=== PATIENT | female | born 1985 | race American Indian/Alaskan Native ===

== ENCOUNTER 2017-03-11 09:55 | Emergency (ER) | payer MEDICAID ==
[2017-03-11 10:40] VITALS: BP 110/76
[2017-03-11] MEDS ORDERED: FLEXERIL PO ONE (11:47)
[2017-03-11] MEDS ORDERED: MOTRIN PO ONE (11:47)
[2017-03-11] MEDS ORDERED: NORCO 7.5/325 PO ONE (11:47)
--- NOTE | 2017-03-11 12:04 | XRay Report ---
LEFT WRIST, 4 views: HISTORY: Pain and swelling. Routine views demonstrate the carpal bones to be well mineralized with well preserved bony mineralization and interosseous joint spaces. The carpal and adjacent articular bones have normal contours. The surrounding soft tissues are unremarkable. IMPRESSION: Normal study.
--- NOTE | 2017-03-11 14:32 | Emergency Department Report ---
Upper Extremity - HPI Chief Complaint: Extremity Problem,Nontraumatic Stated Complaint: LEFT WRIST PAIN Upper Extremity: Left Wrist Occurred When: Today Mechanism: Unsure Severity: mild Symptoms: Yes Pain with Movement, Yes Limited Range of Movement, Yes Numbness, Yes Swelling, No Deformity, No Weakness, No Bruising/Ecchymosis, No Laceration or Abrasion Other History: 31 year old female presents to ED with left wrist swelling, pain x1 day. patient denies injury or trauma. patient is stable, neurologically intact and in no acute distress. ED Review of Systems ROS: Stated complaint: LEFT WRIST PAIN Other details as noted in HPI Constitutional: denies: chills, fever Eyes: denies: eye pain, eye discharge, vision change ENT: denies: ear pain, throat pain Respiratory: denies: cough, shortness of breath, wheezing Cardiovascular: denies: chest pain, palpitations Endocrine: no symptoms reported Gastrointestinal: denies: abdominal pain, nausea, diarrhea Genitourinary: denies: urgency, dysuria, discharge Musculoskeletal: joint swelling, arthralgia. denies: back pain Skin: denies: rash, lesions Neurological: numbness. denies: headache, weakness, paresthesias, confusion, abnormal gait, vertigo Psychiatric: denies: anxiety, depression Hematological/Lymphatic: denies: easy bleeding, easy bruising ED Past Medical Hx - Past Medical History Previous Medical History?: No Additional medical history: UTI - Surgical History Past Surgical History?: No - Social History Smoking Status: Never Smoker Substance Use Type: None - Medications Home Medications: Home Medications Medication Instructions Recorded Confirmed Last Taken Type Meloxicam 7.5 mg PO QAM #5 tablet 03/11/17 Unknown Rx methylPREDNISolone [Medrol] 4 mg PO QAM #1 tab.ds.pk 03/11/17 Unknown Rx Upper Extremity Exam - Exam General: Vital signs noted. No distress. Alert and acting appropriately. Elbow: Yes Normal Range of Motion in Elbow, No Elbow Tenderness, No Elbow Deformity Forearm: No Forearm Tenderness, No Forearm Deformity, No Pain with Pronation, No Pain with Supination Wrist: Yes Wrist Tenderness, No Normal ROM in Wrist, No Wrist Deformity Hand: Yes Normal ROM in Digit(s), No Hand Tenderness, No Hand Deformity, No Digit Tenderness (slightly cold to touch digits on left hand) CMS Exam: Yes Normal Distal Pulses, Yes Normal Capillary Refill, Yes Normal Distal Sensation (positive tinel sign, unable to perform phalen due to pain), No Broken Skin ED Course Vital Signs 03/11/17 10:28 Temperature 98.4 F Pulse Rate 83 Respiratory 18 Rate Blood Pressure 110/76 O2 Sat by Pulse 99 Oximetry ED Medical Decision Making - Radiology Data Radiology results: report reviewed XR left wrist normal study left upper ext doppler negative for DVT - Medical Decision Making 31 year old female presents to ED with left wrist pain, swelling and x1 day. patient has no acute findings on xray or ultrasound. patient is stable, neurologically intact and in no acute distress. patient had left upp ext DVT ultrasound due to pain, swelling, cold to the touch fingers and patient is on control. Critical care attestation.: If time is entered above; I have spent that time in minutes in the direct care of this critically ill patient, excluding procedure time. ED Disposition Clinical Impression: Carpal tunnel syndrome of left wrist Disposition: DC-01 TO HOME OR SELFCARE Is pt being admited?: No Does the pt Need Aspirin: No Condition: Stable Instructions: Carpal Tunnel Syndrome (ED) Prescriptions: Meloxicam 7.5 mg PO QAM #5 tablet methylPREDNISolone [Medrol] 4 mg PO QAM #1 tab.ds.pk Referrals: DEAN HURLEY MD [Staff Physician] - 2-3 Days Forms: Work/School Release Form(ED)
--- NOTE | 2017-03-14 07:33 | Vascular Lab Report ---
LEFT UPPER EXTREMITY VENOUS DUPLEX: REASON FOR EXAM: Pain and swelling of the left upper extremity COMMENTS ON THE LEFT: All arm veins visualized are freely compressible without evidence of internal echogenicity. The subclavian and internal jugular veins are free of thrombus. Flow is spontaneous and phasic throughout. COMMENTS ON THE RIGHT: The subclavian and internal jugular veins are free of thrombus. IMPRESSION: No evidence of acute or chronic deep venous thrombosis in the left upper extremity.
== END 2017-03-11 14:35 | disposition home or self-care (01) ==
LOC: ED 09:55
DX: G56.02 Carpal tunnel syndrome, left upper limb (principal)

== ENCOUNTER 2017-04-19 20:17 | Emergency (ER) | payer MEDICAID ==
[2017-04-19 21:32] LABS: Bilirubin,Urine NEG (Negative); Blood,Urine MOD (Negative); Ketones,Urine NEG (Negative); Leukocyte Esterase,Urine TR (Negative); Mucus,Urine 3+ /HPF; Nitrite,Urine NEG (Negative); Protein,Urine <15 mg/dL mg/dL (Negative); Urobilinogen,Urine < 2.0 mg/dL (<2.0)
[2017-04-20] MEDS ORDERED: MORPHINE IV ONE (01:03)
[2017-04-20 01:11] LABS: Basophils % (Auto) 0.2 % (0.0-1.8); Eosinophils % (Auto) 0.3 % (0.0-4.3); Hematocrit 38.1 % (30.3-42.9); Hemoglobin 13.1 gm/dl (10.1-14.3); Mean Corpuscular HGB Conc 34 % (30-34); Mean Corpuscular Hemoglobin 30 pg (28-32); Mean Corpuscular Volume 87 fl (79-97); Platelet Count 258 K/mm3 (140-440); Red Blood Count 4.36 M/mm3 (3.65-5.03); Red Cell Distribution Width 12.9 % (13.2-15.2); White Blood Count 8.4 K/mm3 (4.5-11.0)
[2017-04-20 01:34] LABS: Alanine Aminotransferase 8 units/L (7-56); Albumin 4.4 g/dL (3.9-5); Albumin/Globulin Ratio 1.6 %; Alkaline Phosphatase 62 units/L (35-129); Amylase 110 units/L (27-131); Anion Gap 17 mmol/L; BUN/Creatinine Ratio 20; Blood Urea Nitrogen 14 mg/dL (7-17); Calcium 9.7 mg/dL (8.4-10.2); Carbon Dioxide 24 mmol/L (22-30); Chloride 105.3 mmol/L (98-107); Creatine Kinase 125 units/L (30-135); Glucose 95 mg/dL (65-100); Lipase 24 units/L (13-60); Potassium 4.2 mmol/L (3.6-5.0); Sodium 142 mmol/L (137-145); Total Protein 7.1 g/dL (6.3-8.2)
[2017-04-20 01:51] LABS: Bilirubin,Direct < 0.2 mg/dL (0-0.2); Bilirubin,Indirect 0.2 mg/dL
--- NOTE | 2017-04-20 04:28 | Emergency Department Report ---
ED Abdominal Pain HPI - General Chief Complaint: Abdominal Pain Stated Complaint: ABD PAIN Time Seen by Provider: 04/20/17 00:54 Source: patient Mode of arrival: Ambulatory Limitations: No Limitations - History of Present Illness Initial Comments: 31-year-old female complaining of nausea with some abdominal cramping since Tuesday. Complaining of upper abdominal epigastric pain. Some associated nausea. States she had 2 episodes of vomiting yesterday. Denies vaginal discharge denies fevers or chills. Patient awake alert and oriented 3 does not appear to be in severe distress. Denies any recent travel denies any new food consumption. Denies sexual activity for 4+ months. Last menstrual period 02/27/17. Patient concerned she may be . MD Complaint: abdominal pain Onset/Timin -: days(s) Location: epigastric Radiation: epigastric Migration to: epigastric Severity: mild Quality: cramping, sharp Consistency: intermittent Improves With: nothing Worsens With: nothing Associated Symptoms: nausea - Related Data Previous Rx's Medication Instructions Recorded Last Taken Type Meloxicam 7.5 mg PO QAM #5 tablet 03/11/17 Unknown Rx methylPREDNISolone [Medrol] 4 mg PO QAM #1 tab.ds.pk 03/11/17 Unknown Rx Famotidine [Pepcid] 20 mg PO BID PRN #30 tablet 04/20/17 Unknown Rx Naproxen 500 mg PO BID PRN #20 tablet 04/20/17 Unknown Rx Ondansetron [Zofran Odt] 4 mg PO Q8H PRN #20 tab.rapdis 04/20/17 Unknown Rx Allergies Allergy/AdvReac Type Severity Reaction Status Date / Time No Known Allergies Allergy Verified 04/19/17 20:19 ED Review of Systems ROS: Stated complaint: ABD PAIN Other details as noted in HPI Constitutional: denies: chills, fever Eyes: denies: eye pain, eye discharge, vision change ENT: denies: ear pain, throat pain Respiratory: denies: cough, shortness of breath, wheezing Cardiovascular: denies: chest pain, palpitations Endocrine: no symptoms reported Gastrointestinal: abdominal pain, nausea. denies: diarrhea Genitourinary: denies: urgency, dysuria, discharge Musculoskeletal: denies: back pain, joint swelling, arthralgia Skin: denies: rash, lesions Neurological: denies: headache, weakness, paresthesias Psychiatric: denies: anxiety, depression Hematological/Lymphatic: denies: easy bleeding, easy bruising ED Past Medical Hx - Past Medical History Previous Medical History?: No Additional medical history: UTI - Surgical History Past Surgical History?: No - Social History Smoking Status: Never Smoker Substance Use Type: None - Medications Home Medications: Home Medications Medication Instructions Recorded Confirmed Last Taken Type Meloxicam 7.5 mg PO QAM #5 tablet 03/11/17 Unknown Rx methylPREDNISolone [Medrol] 4 mg PO QAM #1 tab.ds.pk 03/11/17 Unknown Rx Famotidine [Pepcid] 20 mg PO BID PRN #30 tablet 04/20/17 Unknown Rx Naproxen 500 mg PO BID PRN #20 tablet 04/20/17 Unknown Rx Ondansetron [Zofran Odt] 4 mg PO Q8H PRN #20 tab.rapdis 04/20/17 Unknown Rx ED Physical Exam - General Limitations: No Limitations General appearance: alert, in no apparent distress - Head Head exam: Present: atraumatic, normocephalic - Eye Eye exam: Present: normal appearance, PERRL, EOMI - ENT ENT exam: Present: mucous membranes moist - Neck Neck exam: Present: normal inspection - Respiratory Respiratory exam: Present: normal lung sounds bilaterally. Absent: respiratory distress - Cardiovascular Cardiovascular Exam: Present: regular rate, normal rhythm. Absent: systolic murmur, diastolic murmur, rubs, gallop - GI/Abdominal GI/Abdominal exam: Present: soft (some epigastric pain and right upper quadrant pain on palpation. Positive Sellers's sign. Negative tenderness at McBurney's point negative suprapubic pain on deep palpation.), normal bowel sounds - External exam: Present: normal external exam Speculum exam: Present: normal speculum exam Bi-manual exam: Present: normal bi-manual exam (no cervical motion tenderness no adnexal tenderness on exam. Some white discharge) - Extremities Exam Extremities exam: Present: normal inspection - Back Exam Back exam: Present: normal inspection - Neurological Exam Neurological exam: Present: alert, oriented X3, CN II-XII intact, normal gait - Psychiatric Psychiatric exam: Present: normal affect, normal mood - Skin Skin exam: Present: warm, dry, intact, normal color. Absent: rash ED Course Vital Signs 04/19/17 20:19 Temperature 98.6 F Pulse Rate 81 Respiratory 18 Rate Blood Pressure 113/84 O2 Sat by Pulse 99 Oximetry ED Medical Decision Making - Lab Data Result diagrams: 04/20/17 01:00 04/20/17 01:00 - Medical Decision Making A/P: abdominal pain, nausea and vomiting possible cervicitis. 1-nausea and vomiting have subsided. Patient's pain is subsided. 2-CT scan unremarkable some uterine fibroids. Right upper quadrant ultrasound unremarkable. Labs unremarkable. UA unremarkable patient is not . 3-patient has no clinical signs of PID no adnexal tenderness no cervical motion tenderness. As patient has some discharge Will cover patient empirically for cervicitis with azithromycin and ceftriaxone. Follow-up with [facility] and primary care 4- patient refusing pelvic exam at this time. Will treat patient empirically for cervicitis and will also cover for PID with doxycycline. will give patient Zofran when necessary. Critical care attestation.: If time is entered above; I have spent that time in minutes in the direct care of this critically ill patient, excluding procedure time. ED Disposition Clinical Impression: Abdominal pain Qualifiers: Abdominal location: epigastric Qualified Code(s): R10.13 - Epigastric pain Disposition: TO HOME OR SELFCARE Is pt being admited?: No Does the pt Need Aspirin: No Condition: Stable Instructions: Abdominal Pain (ED) Prescriptions: Famotidine [Pepcid] 20 mg PO BID PRN #30 tablet PRN Reason: Indigestion Naproxen 500 mg PO BID PRN #20 tablet PRN Reason: Pain Ondansetron [Zofran Odt] 4 mg PO Q8H PRN #20 tab.rapdis PRN Reason: Nausea Referrals: [facility] [Outside] - 3-5 Days [facility] [Provider Group] - 3-[address] [facility] [Outside] - 3-5 Days Forms: Work/School Release Form(ED) Time of Disposition: 06:39
--- NOTE | 2017-04-20 04:57 | Cat Scan Report ---
FINAL REPORT EXAM: CT ABDOMEN PELVIS W CON HISTORY: worsening epigastric pain TECHNIQUE: CT images are acquired through the Abdomen and Pelvis in portal and delayed venous phases following ingestion of positive enteric contrast and intravenous administration of contrast. Transaxial, coronal and sagittal reformations are provided. PRIORS: None FINDINGS: Partially visualized intrathoracic contents are unremarkable. The liver, gallbladder, pancreas, spleen, and adrenal glands are unremarkable. Kidneys are normal in size, axis and position. There is a 2 millimeter nonobstructive left collecting system stone. A 15 millimeter interpolar left renal cyst is present. No hydroureteronephrosis or right-sided nephrolithiasis. No stones in the urinary bladder. Positive enteric contrast is seen as far distally as the ascending colon. Small and large bowel are normal in caliber. Appendix is normal in caliber and predominantly air-filled without surrounding inflammatory findings. No free air, free fluid, or lymphadenopathy identified. Aorta is normal in course and caliber. Anteverted uterus possibly containing several fundal transmural fibroids. Multiple pelvic phleboliths. Trace free fluid in the pelvis is likely physiologic. Superficial soft tissues are unremarkable. No acute or aggressive appearing skeletal findings. IMPRESSION: No acute findings in the abdomen or pelvis.
[2017-04-20] MEDS ORDERED: ZOFRAN IV ONE ×2 (05:16→07:58)
--- NOTE | 2017-04-20 06:06 | Ultrasound Report ---
FINAL REPORT EXAM: US ABDOMEN LIMITED HISTORY: RUQ pain ? gallstones TECHNIQUE: Routine imaging was obtained of the right upper outer quadrant. FINDINGS: The gallbladder is normal in size and wall thickness. Stones are not identified. The common bile duct measures 3.2 millimeters in diameter which is normal. The liver is normal size and echotexture. The right kidney shows no evidence of hydronephrosis. Free fluid is not seen. IMPRESSION: Normal exam. No evidence of gallstones or secondary signs of acute cholecystitis.
[2017-04-20] MEDS ORDERED: XYLOCAINE 1% MPF 5 mL INFILTRATI ONE (06:34)
[2017-04-20] MEDS ORDERED: ROCEPHIN IM ONE (06:34)
[2017-04-20] MEDS ORDERED: ZITHROMAX PO ONE (06:35)
[2017-04-20] MEDS ORDERED: TORADOL IV ONE (07:58)
[2017-04-20 08:32] VITALS: BP 115/80
== END 2017-04-20 08:30 | disposition home or self-care (01) ==
LOC: ED 20:17
DX: R10.13 Epigastric pain (principal); R11.0 Nausea
CPT/HCPCS: 36415; 74177; 76705; 80048; 80074; 81001; 81025; 82140; 82150; 82550; 83690; 85025; 87210; 87591; 96372; 96374; 96375; 96376; 99284; J0696; J1885; J2270; J2405; Q9967

== ENCOUNTER 2017-06-02 07:12 | Outpatient (CLI) | payer MEDICAID ==
--- NOTE | 2017-06-02 08:45 | Magnetic Resonance Report ---
MR CERVICAL SPINE WITHOUT CONTRAST HISTORY: Cervicalgia. TECHNIQUE: Axial T2. Sagittal T1, T2 and STIR. COMPARISON: None. FINDINGS: The cervical spinal cord is normal size and signal intensity throughout. There is mild straightening of the normal cervical lordosis which may be secondary to positioning or muscular spasm. There is normal height and alignment of the vertebral bodies otherwise. No evidence for fracture, subluxation or bone lesion. There is mild diffuse disc desiccation throughout the cervical region. Moderate disc space narrowing at C5-6. The facet joints are appropriate relationship. No significant abnormality. The ligamentum flavum is normal. C2-3: No abnormality. C3-4: No abnormality. C4-5: No abnormality. C5-6: A mild diffuse posterior bulging disc and mild bilateral uncovertebral spurring are identified. There is a moderate size right paracentral to right lateral disc protrusion which projects into the right neural foramen resulting in approximately 50% right neural foraminal narrowing. The left neural foramen is normal. C6-7: No abnormality. C7-T1: No abnormality. IMPRESSION: Moderate degenerative disc disease at C5-6. There is also a moderate size right paracentral to right lateral disc protrusion at C5-6 which narrows the right neural foramen by 50%. Correlate for radiculopathy. No central canal stenosis is appreciated.
== END 2017-06-02 07:13 | disposition home or self-care (01) ==
LOC: MRI 07:12
PROVIDERS: ATTEND Orthopaedic Surgery
DX: M50.322 Other cervical disc degeneration at C5-C6 level (principal); M50.222 Other cervical disc displacement at C5-C6 level
CPT/HCPCS: 72141